=== PATIENT | female | born 1970 | race Caucasian/White ===

== ENCOUNTER → 2016-09-18 | Outpatient (CLI) | payer BC | LOC: MC.RAD 15:12 | DX: Z12.31 Encounter for screening mammogram for malignant neoplasm of breast (principal) ==

== ENCOUNTER → 2017-06-20 | Outpatient (CLI) | payer BC | LOC: COL.RAD 13:52 | DX: M25.512 Pain in left shoulder (principal) | CPT/HCPCS: J3301; Q9967 ==

== ENCOUNTER → 2018-02-18 | Outpatient (CLI) | payer BC | LOC: MC.RAD 01-14 07:20 | DX: Z12.31 Encounter for screening mammogram for malignant neoplasm of breast (principal) ==

== ENCOUNTER → 2019-05-05 | Outpatient (CLI) | payer BC | LOC: MC.RAD 04-06 07:45 | DX: Z12.31 Encounter for screening mammogram for malignant neoplasm of breast (principal) ==

== ENCOUNTER → 2019-05-08 | Outpatient (CLI) | payer BC | LOC: MC.RAD 07:26 | DX: Z12.31 Encounter for screening mammogram for malignant neoplasm of breast (principal); N64.89 Other specified disorders of breast | CPT/HCPCS: G0279 ==

== ENCOUNTER → 2020-05-10 | Outpatient (CLI) | payer BC ==
[~2020-05-10] MED LIST: MAGNESIUM ELEME30 MG PO; VITAMIN B12 781 TAB PO; VITAMIN D3400 I1 PO
== END ==
LOC: MC.RAD 07:32
DX: Z12.31 Encounter for screening mammogram for malignant neoplasm of breast (principal)

== ENCOUNTER → 2020-05-13 | Outpatient (CLI) | payer BC | LOC: MC.RAD | DX: R92.0 Mammographic microcalcification found on diagnostic imaging of breast (principal) ==

== ENCOUNTER → 2020-05-18 | Outpatient (CLI) | payer BC | LOC: MC.RAD | DX: D24.1 Benign neoplasm of right breast (principal); N60.11 Diffuse cystic mastopathy of right breast; R92.0 Mammographic microcalcification found on diagnostic imaging of breast ==

== ENCOUNTER 2020-08-19 08:27 | Day surgery (SDC) | payer BC ==
[~2020-08-19] VITALS: Ht 167.6 cm; Wt 58.1 kg
[2020-08-19 08:50] VITALS: BP 117/76; PULSE 63; TEMP 97.9
[2020-08-19] MEDS ORDERED: VITAMIN B12 781 TAB PO (09:10)
[2020-08-19] MEDS ORDERED: VITAMIN D3400 I1 PO (09:11)
[2020-08-19] MEDS ORDERED: MAGNESIUM ELEME30 MG PO (09:11)
[2020-08-19 10:40] VITALS: BP 108/61; PULSE 58; TEMP 98.2
--- NOTE | 2020-08-19 10:40 | NUR ---
PATIENT TRANSPORTED PER CART FROM GI SUITE TO BAY 9 ACCOMPANIED BY EMERITA RN. PATIENT AMBULATED WITH 2 ASSIST FROM CART TO CHAIR SLOW STEADY GAIT. PATIENT TALKS WITH STAFF. MONITORS APPLIED. VSS ON ROOM AIR. VERBAL REPORT RECEIVED.
[2020-08-19 10:45] VITALS: BP 100/71; PULSE 57
--- NOTE | 2020-08-19 10:50 | NUR ---
VSS ON ROOM AIR. PATIENT TOLERATES MUFFIN AND COFFEE WITHOUT NAUSEA. PATIENT DENIES DISCOMFORT.
[2020-08-19 11:00] VITALS: BP 111/73; PULSE 54
--- NOTE | 2020-08-19 11:04 | NUR ---
VSS ON ROOM AIR. DOCTOR IN ROOM AND SPEAKS WITH PATIENT. PATIENT TALKS WITH STAFF. PATIENT STATES DOING WELL.
[2020-08-19 11:15] VITALS: BP 104/77; PULSE 69
--- NOTE | 2020-08-19 11:20 | NUR ---
VSS ON ROOM AIR. IV DC'D. DISCHARGE INSTRUCTIONS GIVEN VERBAL AND DISCHARGE PACKET PROVIDED. QUESTIONS ANSWERED AND PATIENT VOICED UNDERSTANDING. PATIENT CHANGES INTO STREET CLOTHES.
--- NOTE | 2020-08-19 11:30 | NUR ---
DISCHARGED PER WHEEL CHAIR ACCOMPANIED BY AMB STAFF TO [facility].
== END 2020-08-19 11:30 | disposition home or self-care (01) ==
LOC: SDCO 08:27
DX: Z12.11 Encounter for screening for malignant neoplasm of colon (principal); Z79.899 Other long term (current) drug therapy
CPT/HCPCS: J2704; J7030

== ENCOUNTER → 2021-06-09 | Outpatient (CLI) | payer BC | LOC: MC.RAD 07:30 | DX: Z12.31 Encounter for screening mammogram for malignant neoplasm of breast (principal) ==

== ENCOUNTER 2023-03-21 07:42 | Emergency (ER) | payer OTHER ==
[~2023-03-21] VITALS: Ht 167.6 cm; Wt 56.8 kg
[2023-03-21 07:57] VITALS: TEMP 98.6
[2023-03-21] MEDS ORDERED: HYDROmorphone 0.5 MG/0.5 ML SYRINGE IV ONE (08:00)
[2023-03-21 08:38] LABS: BASO # 0.1 K/mm3 (0.0-0.2); BASO % 1.2 % (0.0-2.0); EOS # 0.1 K/mm3 (0.0-0.7); EOS % 1.4 % (0.0-4.0); GRAN # 2.2 K/mm3 (1.4-6.5); GRAN % 43.5 % (42.2-75.2); HEMATOCRIT 39.1 % (37.0-47.0); HEMOGLOBIN 13.2 g/dl (12.5-16.0); LYMPH # 2.2 K/mm3 (1.2-3.4); LYMPH % 44.5 % (20.0-51.0); MEAN CELL VOLUME 87 fl (80.0-100.0); MEAN CORPUSCULAR HEMOGLOBIN 29 pg (27-31); MEAN CORPUSCULAR HGB CONC 34 g/dl (33.0-37.0); MEAN PLATELET VOLUME 10.9 fl (7.4-10.4); MONO # 0.5 K/mm3 (0.1-0.6); PLATELET COUNT 250 K/mm3 (130-400); RED BLOOD COUNT 4.51 M/mm3 (4.10-5.30); REDCELL DISTRIBUTION WIDTH-CV 12.3 % (11.5-14.5)
[2023-03-21] MEDS ORDERED: Ketamine 50 MG/5 ML SYRINGE IV ONE (08:45)
[2023-03-21 08:54] LABS: ALBUMIN 3.9 gm/dL (3.5-5.0); BILIRUBIN,TOTAL 0.5 mg/dL (0.2-1.2); CALCIUM 9.3 mg/dL (8.4-10.2); CREATININE, serum 0.87 mg/dL (0.57-1.11); POTASSIUM 3.7 mmol/L (3.5-4.5); TOTAL PROTEIN 6.5 gm/dL (6.2-8.1)
[2023-03-21] MEDS ORDERED: Ondansetron 4 MG/2 ML VIAL IV ONE ×2 (09:30→11:00)
[2023-03-21] MEDS ORDERED: ceFAZolin 1 G in Water For Injection,Sterile 10 ML IV ONE (09:30)
[2023-03-21] MEDS ORDERED: NS 1,000 ML IV ONE (09:30)
[2023-03-21] MEDS ORDERED: fentaNYL 50 MCG/ML 2 ML VIAL IV PRN (10:00)
[2023-03-21] MEDS ORDERED: PERCOCET 325 MG1 TA2 PO (11:24)
[2023-03-21] MEDS ORDERED: CEPHALEXIN500 M1 PO (11:24)
[2023-03-21] MEDS ORDERED: WATER FOR INJECTION STERILE IV ONE (11:30)
[2023-03-21] MEDS ORDERED: CEFAZOLIN IV ONE (11:30)
[2023-03-21 11:35] VITALS: BP 131/83; PULSE 72
[2023-03-21] MEDS ORDERED: ZOFRAN ODT4 MG PO (11:45)
== END 2023-03-21 11:43 | disposition home or self-care (01) ==
LOC: COL.ER 07:42
PROVIDERS: Emergency Medicine
DX: S52.502A Unspecified fracture of the lower end of left radius, initial encounter for closed fracture (principal); S52.602A Unspecified fracture of lower end of left ulna, initial encounter for closed fracture; W00.0XXA Fall on same level due to ice and snow, initial encounter
CPT/HCPCS: J0690; J1170; J2405; J3010; J7030

== ENCOUNTER → 2023-09-25 | Outpatient (CLI) | payer OTHER ==
[~2023-09-25] MED LIST changes: +CEPHALEXIN500 M1 PO; +PERCOCET 325 MG1 TA2 PO; +ZOFRAN ODT4 MG PO
== END ==
LOC: MC.RAD 14:51
DX: Z12.31 Encounter for screening mammogram for malignant neoplasm of breast (principal)